=== PATIENT | female | born 1985 | race Caucasian/White ===

== ENCOUNTER 2017-01-05 22:53 | Outpatient (CLI) | payer MEDICAID ==
[~2017-01-05] VITALS: Ht 167.6 cm; Wt 74.5 kg
[2017-01-05 23:00] VITALS: BP 114/68
[2017-01-05 23:27] LABS: DAU SCREEN DISCLAIMER
== END 2017-01-06 00:15 | disposition home or self-care (01) ==
LOC: LDOP 22:53
PROVIDERS: ATTEND Obstetrics & Gynecology
DX: O36.8130 Decreased fetal movements, third trimester, not applicable or unspecified (principal); Z3A.30 30 weeks gestation of pregnancy
CPT/HCPCS: 59025; 80307; 99211; G0463

== ENCOUNTER 2018-10-29 18:02 | Emergency (ER) | payer MEDICAID ==
[~2018-10-29] VITALS: Ht 165.1 cm; Wt 67.8 kg
[2018-10-29 18:08] VITALS: BP 100/61
[2018-10-29] MEDS ORDERED: LIDOCAINE-MPF 1%, 2ML ONE (18:21)
--- NOTE | 2018-10-29 18:26 | NUR ---
Yellow slip sent to pharmacy requesting medication per [facility] unavailable in [place].
[2018-10-29] MEDS ORDERED: BUPIVACAINE/PF-EPI 0.25% 1:200K SQ ONE (18:30)
[2018-10-29] MEDS ORDERED: LIDOCAINE-MPF 1%, 5ML INFIL ONE (18:30)
--- NOTE | 2018-10-29 18:56 | NUR ---
Patient given discharge instructions and they have confirmed that they understand the instructions. Patient ambulatory with steady gait. Pt left with d/c paperwork, prescription, and all personal belongings.
== END 2018-10-29 18:58 | disposition home or self-care (01) ==
LOC: ED 18:50
DX: O26.891 Other specified pregnancy related conditions, first trimester (principal); K08.89 Other specified disorders of teeth and supporting structures; Z72.9 Problem related to lifestyle, unspecified; Z90.49 Acquired absence of other specified parts of digestive tract; Z3A.01 Less than 8 weeks gestation of pregnancy
CPT/HCPCS: 64400; 99284

== ENCOUNTER 2020-08-09 14:02 | Emergency (ER) | payer MEDICAID ==
[~2020-08-09] VITALS: Ht 165.1 cm; Wt 93.6 kg
[2020-08-09 14:22] VITALS: BP 136/99
== END 2020-08-09 15:04 | disposition home or self-care (01) ==
LOC: ED 14:55
DX: K02.9 Dental caries, unspecified (principal); K08.89 Other specified disorders of teeth and supporting structures
CPT/HCPCS: 99283